=== PATIENT | male | born 1990 | race African-American/Black ===

== ENCOUNTER 2019-03-29 09:52 | Emergency (ER) | payer SELFPAY ==
[~2019-03-29] VITALS: Ht 195.6 cm; Wt 75.7 kg
--- NOTE | 2019-03-29 11:12 | PHYS DOC ---
Past Medical History Past Medical History: No Pertinent History Past Surgical History: No Surgical History Additional Information: SMOKES 1 CIGARETTE A DAY Alcohol Use: None Drug Use: Marijuana Adult General Chief Complaint Chief Complaint: ABSCESS HPI HPI Patient is a 28 year old male who presents with a lesion to the base of his penis. The patient states that it is not painful. He states that he noticed a growth yesterday. It he had not seen any sign of a lesion before then. He states that he was last sexually active 2 weeks ago. There is no drainage currently from the lesion. There are no rashes noted. Review of Systems Review of Systems Constitutional: Denies fever or chills [] Respiratory: Denies cough or shortness of breath [] Cardiovascular: No additional information not addressed in HPI [] GI: Denies abdominal pain, nausea, vomiting, bloody stools or diarrhea [] : Denies dysuria or hematuria [] Musculoskeletal: Denies back pain or joint pain [] Integument: See history of present illness Neurologic: Denies headache, focal weakness or sensory changes [] Endocrine: Denies polyuria or polydipsia [] All other systems were reviewed and found to be within normal limits, except as documented in this note. Allergies Allergies Allergies Coded Allergies Type Severity Reaction Last Updated Verified bee venom protein (honey bee) Allergy Intermediate 03/29/19 Yes peas Allergy Unknown 03/29/19 Yes Physical Exam Physical Exam Constitutional: Well developed, well nourished, no acute distress, non-toxic appearance. [] Cardiovascular:Heart rate regular rhythm, no murmur [] Lungs & Thorax: Bilateral breath sounds clear to auscultation [] Abdomen: Bowel sounds normal, soft, no tenderness, no masses, no pulsatile masses. [] Skin: 1.5 cm in diameter erythematous lesion to the base of the penis Back: No tenderness, no CVA tenderness. [] Extremities: No tenderness, no cyanosis, no clubbing, ROM intact, no edema. [] Neurologic: Alert and oriented X 3, normal motor function, normal sensory function, no focal deficits noted. [] Psychologic: Affect normal, judgement normal, mood normal. [] Current Patient Data Vital Signs Vital Signs Date Time Temp Pulse Resp B/P (MAP) Pulse Ox O2 Delivery O2 Flow Rate FiO2 03/29/19 13:09 61 16 120/67 (84) 100 Room Air 03/29/19 10:12 97.7 97.7 EKG EKG [] Radiology/Procedures Radiology/Procedures [] Course & Med Decision Making Course & Med Decision Making Pertinent Labs and Imaging studies reviewed. (See chart for details) []A syphilis screen was drawn but the lab equipment is not working correctly. They were unable to run that specimen today. The patient has been placed on Bactrim DS for presumptive treatment of an abscess. He will be contacted if his syphilis screen is positive. He has been instructed to abstain from sexual acuity until we have his results. He is in agreement with this plan. Dragon Disclaimer Dragon Disclaimer This electronic medical record was generated, in whole or in part, using a voice recognition dictation system. Departure Departure Impression: Primary Impression: Abscess Disposition: 01 HOME, SELF-CARE Condition: STABLE Referrals: NO PCP (PCP) Patient Instructions: Abscess Additional Instructions: Take the antibiotic as directed. Make sure that we have a good phone number to call you with the results of your syphilis screening. If worsening return to the emergency department. Scripts Sulfamethoxazole/Trimethoprim (BACTRIM DS TABLET) 1 Each Tablet 1 TAB PO BID for abscess, #20 TAB Prov: OBIE LINARES APRN 03/29/19 OBIE LINARES APRN March 29, 2019 11:12
[2019-03-29] MEDS ORDERED: SULF1TAB24 PO (12:55)
[2019-03-29 13:09] VITALS: BP 120/67
== END 2019-03-29 13:09 | disposition home or self-care (01) ==
LOC: ER 09:52
DX: N48.21 Abscess of corpus cavernosum and penis (principal); F17.210 Nicotine dependence, cigarettes, uncomplicated; Z91.030 Bee allergy status; Z91.018 Allergy to other foods
CPT/HCPCS: 36415; 86592; 99283

== ENCOUNTER 2019-05-20 10:44 | Emergency (ER) | payer SELFPAY ==
[~2019-05-20] VITALS: Ht 195.6 cm; Wt 74.4 kg
[~2019-05-20 10:44] MED LIST: SULF1TAB24 PO
[2019-05-20 11:21] VITALS: BP 132/83
[2019-05-20] MEDS ORDERED: NAPROXEN 500 MG TABLET PO STA (11:54)
[2019-05-20] MEDS ORDERED: DIPHTH,PERTUSS(ACELL),TET TOX 0.5 ML DISP.SYRIN. VAX IM ONE (12:00)
[2019-05-20] MEDS ORDERED: HYDROcodone/APAP 5/325MG 1 TAB TABLET PO ONE (12:00)
[2019-05-20] MEDS ORDERED: LIDOCAINE WITH 8.4% SOD BICARB 3 ML DISP.SYRIN. INJ ONE (12:00)
--- NOTE | 2019-05-20 12:52 | PHYS DOC ---
Past Medical History Past Medical History: No Pertinent History Past Surgical History: No Surgical History Alcohol Use: None Drug Use: Marijuana Adult General Chief Complaint Chief Complaint: ABSCESS HPI HPI Patient is a 28 year old male who presents with an abscess on the right trapezium that began 5 days ago. Denies any fever. Review of Systems Review of Systems Constitutional: Denies fever or chills [] Musculoskeletal: Denies back pain or joint pain [] Integument: Right trapezium abscess Neurologic: Denies headache, focal weakness or sensory changes [] All other systems were reviewed and found to be within normal limits, except as documented in this note. Current Medications Current Medications Current Medications Medications (Trade) Dose Ordered Sig/Sandra Start Time Stop Time Status Last Admin Dose Admin Acetaminophen/ Hydrocodone Bitart (Lortab 5/325) 2 tab 1X ONCE 05/20/19 12:00 05/20/19 12:01 DC 05/20/19 12:10 2 TAB Diphtheria/ Tetanus/Acell Pertussis (Boostrix) 0.5 ml ONCE ONCE 05/20/19 12:00 05/20/19 12:01 DC 05/20/19 12:13 0.5 ML Lidocaine/Sodium Bicarbonate (Buffered Lidocaine 1%) 3 ml 1X ONCE 05/20/19 12:00 05/20/19 12:01 DC 05/20/19 12:11 3 ML Naproxen (Naprosyn) 500 mg 1X STAT 05/20/19 11:54 05/20/19 11:57 DC 05/20/19 12:10 500 MG Allergies Allergies Allergies Coded Allergies Type Severity Reaction Last Updated Verified bee venom protein (honey bee) Allergy Intermediate 03/29/19 Yes peas Allergy Unknown 03/29/19 Yes Physical Exam Physical Exam Constitutional: Well developed, well nourished, no acute distress, non-toxic appearance. [] Skin: Right Is in with an indurated area approximately 3 x 2 cm. The area is warm tender to touch and slightly fluctuant and cellulitis Back: No tenderness, no CVA tenderness. [] Extremities: No tenderness, no cyanosis, no clubbing, ROM intact, no edema. [] Neurologic: Alert and oriented X 3, normal motor function, normal sensory function, no focal deficits noted. [] Psychologic: Affect normal, judgement normal, mood normal. [] Current Patient Data Vital Signs Vital Signs Date Time Temp Pulse Resp B/P (MAP) Pulse Ox O2 Delivery O2 Flow Rate FiO2 05/20/19 12:10 18 98 Room Air 05/20/19 11:21 98.6 65 132/83 (99) 98.6 EKG EKG [] Radiology/Procedures Radiology/Procedures Indication: abscess right trapezius Procedure: The patient was positioned appropriately. Local anesthesia was 1% buffered lidocaine. An incision was then made with an 11 blade over the apex of the lesion and small amount of yellow bloody material was expressed. The drainage cavity was irrigated and covered with sterile gauze. The patient�s tetanus status updated as needed. The patient tolerated the procedure well. Complications: none.[] Course & Med Decision Making Course & Med Decision Making Pertinent Labs and Imaging studies reviewed. (See chart for details) This is a 28-year-old male patient who presents to the ED today with an abscess on the right trapezium. Tetanus updated. Abscess was drained though we didn't have much results. Will be put on Bactrim. Provided wound care instructions and return precautions. Dragon Disclaimer Dragon Disclaimer This electronic medical record was generated, in whole or in part, using a voice recognition dictation system. Departure Departure Impression: Primary Impression: Abscess of right shoulder Additional Impression: Cellulitis of right shoulder Disposition: 01 HOME, SELF-CARE Condition: STABLE Referrals: NO PCP (PCP) SUPRIYA GTZ MD follow up in 2 weeks Patient Instructions: Abscess, Care After Additional Instructions: You were seen for an abscess on her right trapezium. Please apply warm compresses to the area keep it clean and dry. Take the prescribed antibiotics as ordered until completed. Follow-up with your own doctor or the provided doctor in 1-2 weeks. Scripts Sulfamethoxazole/Trimethoprim (BACTRIM DS TABLET) 1 Each Tablet 1 TAB PO BID, #20 TAB Prov: BHAVESH FELIPE NAIL WELTER 05/20/19 Hydrocodone/Apap 5-325 (NORCO 5-325 TABLET) 1 Each Tablet 1 TAB PO Q6HRS, #12 TAB Prov: BHAVESH FELIPE NAIL WELTER 05/20/19 Problem Qualifiers BHAVESH FELIPE APRN May 20, 2019 12:52
[2019-05-20] MEDS ORDERED: HYDR-3164 PO (12:55)
[2019-05-20] MEDS ORDERED: SULF1TAB24 PO (12:55)
== END 2019-05-20 13:20 | disposition home or self-care (01) ==
LOC: ER 10:44
DX: L02.413 Cutaneous abscess of right upper limb (principal); L03.113 Cellulitis of right upper limb; Z91.030 Bee allergy status; Z91.018 Allergy to other foods
CPT/HCPCS: 10060; 90471; 90715; 99283

== ENCOUNTER 2019-07-08 06:17 | Emergency (ER) | payer SELFPAY ==
[~2019-07-08] VITALS: Ht 195.6 cm; Wt 75.7 kg
[~2019-07-08 06:17] MED LIST changes: +HYDR-3164 PO
[2019-07-08] MEDS ORDERED: DOXY100T PO (06:42)
[2019-07-08] MEDS ORDERED: MUPI22OI2 TP (06:42)
--- NOTE | 2019-07-08 06:43 | PHYS DOC ---
Past Medical History Past Medical History: No Pertinent History, Other Additional Past Medical Histor: ECZEMA Past Surgical History: No Surgical History Alcohol Use: None Drug Use: Marijuana Adult General Chief Complaint Chief Complaint: SKIN PROBLEM HPI HPI Patient is a 28-year-old male presents to the emergency department for evaluation, of painful swelling that developed just below his right nipple over the past 2-3 days. He has a small pustular area there, and it is tender to touch. He has not had any drainage, fevers, or chills. He states he did have a small cut that area about a week ago, but it healed. Palpation worsens his pain. There are no alleviating factors to his symptoms. Review of Systems Review of Systems Constitutional: Denies fever or chills [] Integument: Denies rash or skin lesions, except as noted in the history of present illness [] Neurologic: Denies headache, Allergies Allergies Allergies Coded Allergies Type Severity Reaction Last Updated Verified bee venom protein (honey bee) Allergy Intermediate 03/29/19 Yes peas Allergy Unknown 03/29/19 Yes Physical Exam Physical Exam PHYSICAL EXAM: HEENT: Atruamatic NECK: Supple, normal ROM, non-tender. CARDIAC: Regular Rate and Rhythm LUNGS: Clear Bilaterally SKIN: Just inferior to the right nipple, there is an approximately 1 cm pustular lesion, with a small circular "head" in the center, which is tender to palpation, there is no purulent drainage, or surrounding cellulitis. Current Patient Data Vital Signs Vital Signs Date Time Temp Pulse Resp B/P (MAP) Pulse Ox O2 Delivery O2 Flow Rate FiO2 07/08/19 06:20 97.4 63 20 132/77 (95) 100 Room Air 97.4 EKG EKG [] Radiology/Procedures Radiology/Procedures [] Course & Med Decision Making Course & Med Decision Making I discussed initial treatment with topical and oral antibiotics, the need for close follow-up, and return precautions. I discussed the possibility that this may progress into a wound which requires I&D. Olvin Disclaimer Olvin Disclaimer This electronic medical record was generated, in whole or in part, using a voice recognition dictation system. Departure Departure Impression: Primary Impression: Pustule Disposition: 01 HOME, SELF-CARE Condition: STABLE Referrals: PERFECTO TEMPLETON MD Patient Instructions: Abscess Scripts Mupirocin (MUPIROCIN OINTMENT) 22 Gm Oint...g. 1 TRACIE TP TID for WOUND CARE, #1 TUBE Prov: FARRAH POLANCO MD 07/08/19 Doxycycline Hyclate (DOXYCYCLINE HYCLATE) 100 Mg Tablet 1 TAB PO BID, #14 TAB Prov: FARRAH POLANCO MD 07/08/19 FARRAH POLANCO MD Jul 08, 2019 06:43
== END 2019-07-08 06:49 | disposition home or self-care (01) ==
LOC: ER 06:17
DX: L08.9 Local infection of the skin and subcutaneous tissue, unspecified (principal); N64.4 Mastodynia; Z91.030 Bee allergy status; Z91.018 Allergy to other foods
CPT/HCPCS: 99283

== ENCOUNTER 2019-07-12 09:43 | Emergency (ER) | payer SELFPAY ==
[~2019-07-12] VITALS: Ht 195.6 cm; Wt 75.7 kg
[~2019-07-12 09:43] MED LIST changes: +DOXY100T PO; +MUPI22OI2 TP
[2019-07-12 09:52] VITALS: BP 140/65
[2019-07-12] MEDS ORDERED: LIDOCAINE 1% Multi-Dose 20 ML VIAL. INJ ONE (10:00)
--- NOTE | 2019-07-12 10:03 | PHYS DOC ---
Past Medical History Past Medical History: Asthma, Other Additional Past Medical Histor: ECZEMA Past Surgical History: No Surgical History Alcohol Use: None Drug Use: Marijuana Adult General Chief Complaint Chief Complaint: ABSCESS HPI HPI Patient is a 28 year old male presents to the ER with a right nipple abscess. The patient states he was seen in the ER week ago and placed on doxycycline and has been taking and still has some pills left however he says it is getting worse and not improving. 3 out of 10 in severity and tender. He states that he was running and skin broke open the knee got infected. It happened around week ago. Review of Systems Review of Systems Constitutional: Denies fever or chills [] Eyes: Denies change in visual acuity, redness, or eye pain [] HENT: Denies nasal congestion or sore throat [] Respiratory: Denies cough or shortness of breath [] Cardiovascular: No additional information not addressed in HPI [] GI: Denies abdominal pain, nausea, vomiting, bloody stools or diarrhea [] : Denies dysuria or hematuria [] Musculoskeletal: Denies back pain or joint pain [] Integument: Reports abscess to R nipple. Neurologic: Denies headache, focal weakness or sensory changes [] Endocrine: Denies polyuria or polydipsia [] Complete systems were reviewed and found to be within normal limits, except as documented in this note. Current Medications Current Medications Current Medications Medications (Trade) Dose Ordered Sig/[facility] Start Time Stop Time Status Last Admin Dose Admin Lidocaine HCl (Lidocaine 1% 20ml Vial) 20 ml 1X ONCE 07/12/19 10:00 07/12/19 10:01 DC 07/12/19 10:15 20 ML Allergies Allergies Allergies Coded Allergies Type Severity Reaction Last Updated Verified bee venom protein (honey bee) Allergy Intermediate 03/29/19 Yes peas Allergy Unknown 03/29/19 Yes Physical Exam Physical Exam Constitutional: Well developed, well nourished, no acute distress, non-toxic appearance. [] HENT: Normocephalic, atraumatic, bilateral external ears normal, oropharynx moist, no oral exudates, nose normal. [] Eyes: PERRLA, EOMI, conjunctiva normal, no discharge. [] Neck: Normal range of motion, no tenderness, supple, no stridor. [] Cardiovascular:Heart rate regular rhythm, no murmur [] Lungs & Thorax: Bilateral breath sounds clear to auscultation [] Abdomen: Bowel sounds normal, soft, no tenderness, no masses, no pulsatile masses. [] Skin: Abscess inferior to R nipple. Back: No tenderness, no CVA tenderness. [] Extremities: No tenderness, no cyanosis, no clubbing, ROM intact, no edema. [] Neurologic: Alert and oriented X 3, normal motor function, normal sensory function, no focal deficits noted. [] Psychologic: Affect normal, judgement normal, mood normal. [] Current Patient Data Vital Signs Vital Signs Date Time Temp Pulse Resp B/P (MAP) Pulse Ox O2 Delivery O2 Flow Rate FiO2 07/12/19 09:52 98.0 75 17 140/65 (90) 99 Room Air 98.0 EKG EKG [] Radiology/Procedures Radiology/Procedures Indication: abscess Procedure: The patient was positioned appropriately. Local anesthesia was 1% lidocaine. An incision was then made over the apex of the lesion and copious exudate material was expressed. The patient tolerated the procedure well. Complications: none.[] Course & Med Decision Making Course & Med Decision Making Pertinent Labs and Imaging studies reviewed. (See chart for details) Patient has been on doxycycline and has not been working. Will perform I/D and place on Clindamycin. Dragon Disclaimer Dragon Disclaimer This electronic medical record was generated, in whole or in part, using a voice recognition dictation system. Departure Departure Impression: Primary Impression: Abscess Disposition: 01 HOME, SELF-CARE Condition: STABLE Referrals: NO PCP (PCP) Patient Instructions: Abscess, Abscess, Care After Additional Instructions: Thank you for visiting [facility]. We appreciate you trusting us with your care. If any additional problems come up don't hesitate to return to visit us. Please follow up with your primary care provider so they can plan additional care if needed and know about the problem that you had. If symptoms worsen come back to the Emergency Department. Any concerning symptoms that start such as chest pain, shortness of air, weakness or numbness on one side of the body, running high fevers or any other concerning symptoms return to the ER. Please fill your medications at any pharmacy and follow the prescription instructions. You have been prescribed an antibiotic today to help fight your infection. Please take all of the antibiotic as directed. If after 48 hours the infection is not improving, please return for more care. If the infection worsens, return to ER for additional care. Scripts Cephalexin (KEFLEX) 500 Mg Capsule 1 CAP PO BID for 7 Days, #14 CAP Prov: ISSAC PATINO APRN 07/12/19 ISSAC PATINO APRN Jul 12, 2019 10:03
[2019-07-12] MEDS ORDERED: CEPH-264 PO (10:54)
== END 2019-07-12 11:01 | disposition home or self-care (01) ==
LOC: ER 09:43
DX: N61.1 Abscess of the breast and nipple (principal); J45.909 Unspecified asthma, uncomplicated; Z91.030 Bee allergy status; Z91.010 Allergy to peanuts
CPT/HCPCS: 10060; 99283